=== PATIENT | male | born 1975 | race African-American/Black ===

== ENCOUNTER → 2016-08-28 | Outpatient (CLI) | payer OTHER ==
[~2016-08-28] MED LIST: ALLOPURINOL300 MG PO; ANEXSIA 7.5/3251 TA1 PO; HYDROCODON-ACE1 EAC7 PO; LISINOPRIL PO; MICRO-K PO; NORVASC PO; ONDANSETRON HCL4 M1 PO; PERCOCET10 PO; ZESTORETIC 20-1 EAC2 PO
--- NOTE | ~2016-08-28 | CT134 ---
[facility] A Service of [facility] & [facility] RADIOLOGY TEXT RESULTS PATIENT: SAMI BARRERA LOCATION: CIVR : 75 UNIT #: [id number] AGE: [address]: Eden Silva MD SEX: M ORDER DR: [id number] [facility] [address] [place], [place] [address] [id number] O MR#: [id number] Acc #: [id number] NAME: SAMI BARRERA : 1975 SEX: M STUDY DATE/TIME: 08/28/2016 14:05 [facility] ROOM: STUDY DESCRIPTION: CT Guide Attending Physician: Eden Silva M.D. Ordering Physician: Eden Silva M.D. Primary Care Physician: Cata Healy M.D. MEDICAL IMAGING REPORT This report is preliminary unless electronic signature is present PROCEDURE CT-guided right axillary lymph node biopsy. INDICATIONS 41-year-old male with history of lymphoma. Biopsy requested for restaging purposes. Risks, benefits and alternatives of procedure were discussed with the patient. Informed consent was obtained. In the procedure room a time-out was performed confirming correct patient and procedure. All elements of maximum sterile-barrier technique utilized according guidelines appropriate for the procedure. TECHNIQUE/FINDINGS Patient was placed in a supine position on CT scanner. Preliminary CT scan was performed of the right axilla. This demonstrated the enlarged right axillary lymph nodes similar to the CT scan from 07/26/2016. The overlying skin was prepped and draped in usual sterile fashion. 1% lidocaine was utilized to anesthetize the skin and underlying subcutaneous tissues. Next, under CT guidance, a 17-gauge guide needle was advanced into the lymph node. Through this access two 18-gauge core biopsies were obtained and sent to pathology. Needle was removed and a sterile dressing was applied. No immediate complications. This CT exam was performed with one or more of the following radiation dose reduction techniques: automatic exposure control, adjustment of mA and/or kV according to patient size, and iterative reconstruction. IMPRESSION Technically successful CT-guided biopsy of a right axillary lymph node. Dictated by... Jessee Hurt M.D. [facility]. [facility] A Service of [facility] & [facility] RADIOLOGY TEXT RESULTS PATIENT: SAM[facility]ARRERA [id number] 75 UNIT #: [id number] AGE: [address]: Eden Silva MD SEX: M ORDER DR: THIS IS AN ELECTRONICALLY VERIFIED REPORT Jessee Hurt M.D. at 08/29/2016 11:32 AM MONE/claritza TD: 08/29/2016 07:49 JOB #: [id number] MEDICAL IMAGING REPORT Page 1 of 1 COPY
== END | disposition home or self-care (01) ==
LOC: CIVR 13:13
DX: C81.01 Nodular lymphocyte predominant Hodgkin lymphoma, lymph nodes of head, face, and neck (principal); C83.31 Diffuse large B-cell lymphoma, lymph nodes of head, face, and neck
CPT/HCPCS: 77012; 88305

== ENCOUNTER → 2016-10-11 | Outpatient (CLI) | payer OTHER ==
--- NOTE | ~2016-10-11 | EKG ---
PATIENT: SAMI BARRERA UNIT #: [id number] Ventricular Rate: 76 BPM Atrial Rate: 76 BPM P-R Interval: 152 ms QRS Duration: 98 ms Q-T Interval: 396 ms QTC Calculation(Bezet): 445 ms P [place]: 21 degrees Calculated T [place]: 25 degrees Diagnosis Line: Normal sinus rhythm Diagnosis Line: Moderate voltage criteria for LVH, may be normal Diagnosis Line: variant Diagnosis Line: Non Diagnostic Q in Lead Diagnosis Line: Abnormal ECG Diagnosis Line: When compared with ECG of 27-MAR-2016 12:47, Diagnosis Line: No significant change was found Diagnosis Line: Confirmed by PAMELA MAE MD ([id number]) on 10/14/2016 Diagnosis Line: 3:57:56 PM INTERPRETING MD: CARMELITA MONTILLA
[2016-10-11 10:49] LABS: HEMATOCRIT 44.3 % (38.0-50.0); HEMOGLOBIN 14.1 gm/dL (13.0-16.0); MEAN CELL VOLUME 83.7 FL (83-96); MEAN CORPUSCULAR HEMOGLOBIN 26.6 PG (28-34); MEAN CORPUSCULAR HGB CONC 31.8 g/dL (30-36); MEAN PLATELET VOLUME 8.1 FL (6.5-11.5); RED BLOOD COUNT 5.29 X10e (3.90-5.60); RED CELL DISTRIBUTION WIDTH 14.9 % (11.0-15.5); WHITE BLOOD COUNT 4.6 X10e3 (4.0-10.5)
[2016-10-11 11:25] LABS: BUN/CREATININE RATIO 11.81; CALCIUM SERUM 8.8 mg/dL (8.4-10.2); CREATININE SERUM 1.1 mg/dL (0.6-1.4); GLOM FILT RATE Estimated 96.2 mL/min (>60); POTASSIUM 3.3 mmol/L (3.5-5.1)
== END | disposition home or self-care (01) ==
LOC: CAMB 10:26
PROVIDERS: Specialist
DX: Z01.818 Encounter for other preprocedural examination (principal)
CPT/HCPCS: 36415; 80048; 85027; 93005

== ENCOUNTER → 2016-10-16 | Day surgery (SDC) | payer OTHER ==
--- NOTE | ~2016-10-16 | OR ---
Unit #: [id number] #: [id number] Patient: SAMI BRINK JR [id number] [address] [address] [id number] O MR#: [id number] NAME: SAMI BRINK JR ROOM: Date of Procedure: 10/16/2016 Admission Date: 10/16/2016 Surgeon: Preston Arceo M.D. : 1975 Attending Physician: Preston Arceo M.D. Primary Care Physician: Cata Healy M.D. OPERATIVE REPORT PREOPERATIVE DIAGNOSES Right axillary mass, history of Hodgkin lymphoma. POSTOPERATIVE DIAGNOSES Right axillary mass, history of Hodgkin lymphoma. PROCEDURES PERFORMED Right axillary exploration and excision of 4 x 3 cm axillary mass, that was cystic; placement of Claus-Pradhan drain. ANESTHESIA General endotracheal anesthesia. ESTIMATED BLOOD LOSS 30 mL. INDICATIONS FOR PROCEDURE Mr. Brink is a 41-year-old gentleman, who has had a previous history of Hodgkin lymphoma, that was treated by Medical Oncology. He returns with a palpable mass in the right axilla that on CT scan was worrisome for adenopathy. He was sent for exploration and excisional biopsy. DESCRIPTION OF PROCEDURE The patient was admitted to [facility], positively identified, and transported to the operating room, and after induction of general endotracheal anesthesia, his right arm was abducted on an operating arm board. In preoperative hold, I had marked the palpable mass and after being prepped and draped in usual sterile fashion, an incision in the skin line of the axilla was made transversely and I dissected down through the soft tissue, identified the mass. The mass was dissected free from the soft tissue attachments and grasped as it was being dissected out. The feeding vessels were clamped, divided, and ligated. Once the mass was excised, it was opened and there appeared to be a cystic structure with a very fibrous capsule. I further explored the axilla and looking for pathological adenopathy and could not identify any. Some other fatty tissue was removed which may have some small reactive nodes, but there was no pathological hamilton disease identifiable. Because of the extent of the dissection through a separate stab incision, a Claus-Pradhan drain was placed. I infiltrated 30 mL of 0.5% Marcaine with epinephrine. Closed the soft tissue with 2-0 Vicryl interrupted suture and the skin with 3-0 nylon running suture. The drain was secured with 2-0 silk suture. Dry sterile dressing was placed and the drain was placed to bulb Unit #: [id number] #: [id number] Patient: HOLLY ZAMBRANO,SAMI mendes. I spoke with Pathology and they will assess the specimen. Dictated by... Catina Cortes/landon TD: 10/17/2016 01:50 JOB #: [id number] OPERATIVE REPORT Page 1 of 1 X Preston Arceo MD PROCEDURE OPERATIVE NOTE
== END | disposition home or self-care (01) ==
LOC: CSUR 08:56
DX: L04.2 Acute lymphadenitis of upper limb (principal); I89.8 Other specified noninfective disorders of lymphatic vessels and lymph nodes; I10 Essential (primary) hypertension; F17.210 Nicotine dependence, cigarettes, uncomplicated; Z85.72 Personal history of non-Hodgkin lymphomas; Z79.1 Long term (current) use of non-steroidal anti-inflammatories (NSAID); Z79.899 Other long term (current) drug therapy; Z96.642 Presence of left artificial hip joint; Z98.890 Other specified postprocedural states
CPT/HCPCS: 84132; 88305; J1642; J2250; J2405; J3010

== ENCOUNTER → 2016-12-06 | Outpatient (CLI) | payer OTHER ==
--- NOTE | ~2016-12-06 | CT2 ---
[facility] A Service of [facility] RADIOLOGY TEXT RESULTS PATIENT: SAMI BARRERA JR [facility] UNIT #: [id number] AGE: [address]: Eden Silva MD SEX: M ORDER DR: [id number] [facility] [address] [place], [place] [address] [id number] O MR#: [id number] Acc #: [id number] NAME: SAMI BARRERA : 1975 SEX: M STUDY DATE/TIME: 12/06/2016 11:35 UNIT: [facility] ROOM: STUDY DESCRIPTION: CT Abd and Pelv W Cont Attending Physician: Eden Silva M.D. Referring Physician: Eden Silva M.D. Ordering Physician: Eden Silva M.D. Primary Care Physician: Cata Healy M.D. MEDICAL IMAGING REPORT This report is preliminary unless electronic signature is present EXAM CT of the abdomen and pelvis with contrast INDICATIONS Lymphoma. This exam is requested for surveillance for metastatic disease. Patient also reports pain in the right ankle, shoulder and left hip for 1 year. Patient was diagnosed with lymphoma and February 2016. TECHNIQUE Axial CT images were obtained from the dome of the diaphragm through symphysis pubis following administration of intravenous contrast material. This CT exam was performed with one or more of the following radiation dose reduction techniques: automatic exposure control, adjustment of mA and/or kV according to patient size, and iterative reconstruction. Patient's CT of the chest will be dictated separately. FINDINGS Tiny hypoattenuating nodule in the right hepatic lobe. It is stable to slightly smaller when compared to July of 2016. No new hepatic masses are seen. Spleen measures within normal size limits and contains calcified granulomata. No definite splenic lesions are seen on today's examination. There is a small hiatal hernia. Proximal small bowel is within normal limits as are the adrenal glands and pancreas. Two low-attenuation lesions are identified within both kidneys which are too small to accurately characterize but are favored to represent cysts. Adenopathy within the bishop hepatis and portacaval regions I think is probably stable. Portahepatis node measures 2.3 x 1.1 cm, previously it was 2.1 x 1.3 cm, while a portacaval node measures 1.1 cm short-axis dimensions, previously 1.3 cm. I do not see any suspicious retroperitoneal or mesenteric adenopathy. There is a small fat-containing umbilical STS. [facility] A Service of [facility] RADIOLOGY TEXT RESULTS PATIENT: SAMI BARRERA JR LOCATION: [facility] : 75 UNIT #: [id number] AGE: [address]: Eden Silva MD SEX: M ORDER DR: hernia. Appendix is visualized and is within normal limits. Urinary bladder appears grossly unremarkable. Full assessment of the prostate gland is not possible secondary to streak artifact from patient's left hip arthroplasty. There is some prominent external iliac chain nodes which I think have increased slightly in size with the more anteriorly one measuring about 7 mm, previously 6 mm and more posterior 1 measuring about 8 mm, previously 6 mm. On review of bony windows does not demonstrate any aggressive osseous abnormalities. IMPRESSION 1. The patient's right hepatic lesion is stable to perhaps slightly smaller than on prior studies. Portacaval and portahepatis nodes are also stable when compared to the prior examination. Right external iliac chain nodes may be slightly more prominent than on the prior examination. On prior study, patient was noted have some splenic lesions which are really not well seen on this examination. I do not see any new areas of lymphadenopathy. 2. Patient's CT of the chest will be dictated separately. 3. Please see the body of the report for any other additional incidental findings. Dictated by... Lauryn Parker M.D. THIS IS AN ELECTRONICALLY VERIFIED REPORT Lauryn Parker M.D. at 12/07/2016 2:49 PM AFF/pcl TD: 12/06/2016 21:42 JOB #: [id number] MEDICAL IMAGING REPORT Page 1 of 1 COPY
--- NOTE | ~2016-12-06 | CT55 ---
[facility] A Service of [facility] RADIOLOGY TEXT RESULTS PATIENT: SAMI BARRERA JR [facility] UNIT #: [id number] AGE: [address]: Eden Silva MD SEX: M ORDER DR: [id number] [id number] [facility] [place], [place] [address] [id number] O MR#: [id number] [facility] #: [id number] NAME: SAMI BARRERA : 1975 SEX: M STUDY DATE/TIME: 12/06/2016 11:35 [facility] RO[facility]: STUDY DESCRIPTION: CT Chest W Con Attending Physician: Eden Silva M.D. Referring Physician: Eden Silva M.D. Ordering Physician: Eden Silva M.D. Primary Care Physician: Cata Healy M.D. MEDICAL IMAGING REPORT This report is preliminary unless electronic signature is present EXAM CT chest with contrast DATE: 12/06/2016 HISTORY 41-year-old male with diffuse large B-cell lymphoma. Right shoulder, ankle and left hip pain for 1 year. Observation metastatic disease. Restaging. Last chemotherapy treatment approximately 2 months ago per patient. COMPARISON CT chest with contrast 05/24/2017. PROCEDURE 5 mm axial images from the thoracic inlet through the upper abdomen after intravenous contrast administration. Sagittal and coronal reformatted images were obtained. This CT exam was performed with one or more of the following radiation dose reduction techniques: automatic exposure control, adjustment of mA and/or kV according to patient size, and iterative reconstruction. FINDINGS A dominant right axillary lymph node has diminished in size. It currently measures 2.9 cm x 2.5 cm compared to 3.9 cm x 2.9 cm on the previous examination. Smaller clustered lymph nodes adjacent to it appear stable to slightly smaller. The seroma described on the previous examination in the right axilla has resolved with only minimal subcutaneous fat stranding remaining. Small amount of soft tissue is seen within the antrum mediastinum, favored [facility] A Service of [facility] & [facility] RADIOLOGY TEXT RESULTS PATIENT: SAMI BARRERA JR LOCATION: [facility] : 75 UNIT #: [id number] AGE: [address]: Eden Silva MD SEX: M ORDER DR: to represent benign residual thymic tissue. No pathologically enlarged mediastinal or hilar or supraclavicular left axillary nodes are seen. Previously described mildly prominent periportal lymph node within the upper abdomen measures 1.3 cm x 2.1 cm and is stable since 07/25/2016 but it is smaller than on the previous MRI from 04/26/2016 where it measured 4.0 cm x 2.9 cm. No new adenopathy is seen. Imaged portions of the liver, spleen, have a normal appearance, without focal lesion. Remainder of included upper abdominal organs are within normal limits. Lungs are free of acute airspace disease, no suspicious pulmonary nodules are identified. IMPRESSION 1. Right axillary adenopathy continues to diminish in size consistent with positive response to therapy. 2. Periportal lymph node in the upper abdomen is stable and no new upper adenopathy is seen. 3. No acute airspace disease or suspicious pulmonary nodules. Dictated by... Ruma Joseph M.D. THIS IS AN ELECTRONICALLY VERIFIED REPORT Ruma Joseph M.D. at 12/07/2016 9:37 PM SARAH/priyanka TD: 12/07/2016 03:19 JOB #: [id number] MEDICAL IMAGING REPORT Page 1 of 1 COPY
--- NOTE | ~2016-12-06 | CT114 ---
[facility] A Service of [facility] RADIOLOGY TEXT RESULTS PATIENT: SAMI BARRERA JR LOCATION: [facility] : 75 UNIT #: [id number] AGE: [address]: Eden Silva MD SEX: M ORDER DR: [id number] [facility] [address] [place], [place] [address] [id number] O MR#: [id number] Acc #: [id number] NAME: SAMI BARRERA : 1975 SEX: M STUDY DATE/TIME: 12/06/2016 11:35 UNIT: [facility] ROOM: STUDY DESCRIPTION: CT Soft Tissue Neck W Cont Attending Physician: Eedn Silva M.D. Referring Physician: Eden Silva M.D. Ordering Physician: Eden Silva M.D. Primary Care Physician: Cata Healy M.D. MEDICAL IMAGING REPORT This report is preliminary unless electronic signature is present EXAM Soft tissue neck CT with contrast 12/06/2016. PROCEDURE Axial contrast-enhanced soft tissue neck CT with multiplanar reformats. This CT exam was performed with one or more of the following radiation dose reduction techniques: Automatic exposure control, adjustment of mA and/or kV according to patient size, and iterative reconstruction. COMPARISON Chest CT images from 07/25/2016. CLINICAL HISTORY History of lymphoma, status post chemotherapy, routine followup, no new symptoms. FINDINGS There is no soft tissue mass or adenopathy. There are a few normal-sized cervical lymph nodes. The visualized upper mediastinum is also unremarkable. Non-detailed images of the larynx are normal. The vascular structures including the carotid bifurcations are normal without evidence of plaque or stenosis by NASCET criteria. There is slight cervical spinal degenerative change but no acute bony abnormality. The visualized intracranial compartment is normal. IMPRESSION Normal negative soft tissue neck CT. No mass or adenopathy. Dictated by... Greg Carranza M.D. THIS IS AN ELECTRONICALLY VERIFIED REPORT [facility] A Service of [facility] & [facility] RADIOLOGY TEXT RESULTS PATIENT: SAMI BARRERA JR LOCATION: [facility] : 75 UNIT #: [id number] AGE: [address]: Eden Silva MD SEX: M ORDER DR: Greg Carranza M.D. at 12/19/2016 10:40 AM TEV/bd TD: 12/12/2016 13:16 JOB #: [id number] MEDICAL IMAGING REPORT Page 1 of 1 COPY
[2016-12-06 17:01] LABS: POC - CREATININE 1.15 mg/dL (0.64-1.27); POC - GFR >60.0 mL/min (>60)
== END | disposition home or self-care (01) ==
LOC: CCAT 10:35
PROVIDERS: Internal Medicine Hematology
DX: C83.31 Diffuse large B-cell lymphoma, lymph nodes of head, face, and neck (principal); C81.01 Nodular lymphocyte predominant Hodgkin lymphoma, lymph nodes of head, face, and neck; K76.9 Liver disease, unspecified; R59.0 Localized enlarged lymph nodes
CPT/HCPCS: 70491; 71260; 74177; 82565; J1642; Q9967

== ENCOUNTER 2017-02-18 13:52 | Emergency (ER) | payer OTHER ==
[~2017-02-18] VITALS: Ht 182.9 cm; Wt 133.8 kg
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
== END 2017-02-18 18:11 | disposition home or self-care (01) ==
LOC: CED 13:52
DX: S00.83XA Contusion of other part of head, initial encounter (principal); I10 Essential (primary) hypertension; Y09 Assault by unspecified means; Y92.9 Unspecified place or not applicable
CPT/HCPCS: 70450; 70486; 99284